=== PATIENT | female | born 1990 ===

== ENCOUNTER 2016-05-07 16:40 | Inpatient (IN) | payer BC, OTHER ==
[2016-05-07 17:30] VITALS: BMI 20.9
[2016-05-07] MEDS ORDERED: DINOPROSTONE 10 MG VAGINAL SUPPOSITORY VG ONE (18:15)
[2016-05-07] MEDS ORDERED: TUBERCULIN PPD 5 TU/0.1ML SYRINGE (IN PATIENT USE ONLY) ID ONE (18:15)
[2016-05-07 18:37] LABS: BASOPHIL 0.3 % (0-2.0); EOSINOPHIL 0.9 % (0-4.5); MCH 32.6 pg (25.7-33.7); MCHC 34.3 g/dl (32.0-36.0); MEAN CELL VOLUME 95.2 fl (80-96); MEAN PLT VOLUME 9.8 fl (7.5-11.1); NEUTROPHILS 68.6 % (42.8-82.8); PLATELET COUNT 164 K/MM3 (134-434); RDW 12.6 % (11.6-15.6)
[2016-05-07 19:23] LABS: INR 0.98 (0.82-1.09); PROTHROMBIN TIME (PATIENT) 10.8 SEC (9.98-11.88)
[2016-05-07 19:26] LABS: ACTIVATED PTT 25.8 SECONDS (26.9-34.4)
[2016-05-07 19:35] LABS: CALCIUM 8.4 mg/dL (8.5-10.1); CREATININE 0.7 mg/dL (0.55-1.02)
[2016-05-07] MEDS ORDERED: PROMETHAZINE HCL 25 MG/1 ML VIAL IVPUSH ONE (20:21)
[2016-05-07] MEDS ORDERED: BUTORPHANOL TARTRATE 1 MG/ML VIAL IVPB ONE (20:21)
--- NOTE | 2016-05-07 20:37 | HP ---
Past Medical History - Admission History of Present Illness: 25 y/o with SIUP at 39.5 weeks gestation (EDC 05/09/16 by LMP and ultrasound ) here today for labor induction. Pt has had uncomplicated . Last ultrasound showed EFW 18%ile and AC 15I%ile. GBS negative. HIV negative. Low risk NIPT. NO other issues. +FM, no VB/LOF/CTx. Cervix closed in office yesterday. 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: Dementia, Migraine Cardiovascular: No: AFIB, HTN Pulmonary: No: Bronchitis, COPD, Sleep Apnea Gastrointestinal: No: Inflamatory Bowel Disease, Irritable Bowel Disease Reproductive: No: Ectopic , Endometriosis, Fibroids, Polycystic Ovary Syndrome ...: 1 ...Para: 0 ...Term: 0 ...: 0 ...Spon : 0 ...Induced : 0 ...Multiple Gestation: 0 ...EDC by Sono: 05/09/16 Heme/Onc: Yes: Anemia Infectious Disease: No: HIV, STD's Psych: No: Bipolar, Depression Endocrine: No: Diabetes Mellitus, Hyperthyroidism, Hypothyroidism - Past Surgical History Hx Myomectomy: No Hx Transabdominal Cerclage: No Additional Surgical History: sty removed from eye in past - Smoking History Smoking history: Never smoked Have you smoked in the past 12 months: No - Alcohol/Substance Use Hx Alcohol Use: No - Social History ADL: Independent History of Recent Travel: No Home Medications - Allergies Allergies/Adverse Reactions: Allergies Allergy/AdvReac Type Severity Reaction Status Date / Time No Known Allergies Allergy Verified 05/07/16 17:31 - Home Medications Home Medications: Ambulatory Orders Vitamins (Sjr) - 1 tab PO DAILY 05/07/16 Review of Systems - Review of Systems Constitutional: reports: No Symptoms Eyes: reports: No Symptoms HENT: reports: No Symptoms Neck: reports: No Symptoms Cardiovascular: reports: No Symptoms Respiratory: reports: No Symptoms Gastrointestinal: reports: No Symptoms Genitourinary: reports: No Symptoms Breasts: reports: No Symptoms Reported Musculoskeletal: reports: No Symptoms Integumentary: reports: No Symptoms Neurological: reports: No Symptoms Endocrine: reports: No Symptoms Hematology/Lymphatic: reports: No Symptoms Psychiatric: reports: No Symptoms Physical Exam - Maternity Vital Signs: Vital Signs Temperature 98.3 F 05/07/16 19:00 Pulse Rate 60 05/07/16 19:00 Respiratory Rate 20 05/07/16 18:00 Blood Pressure 112/58 05/07/16 19:00 O2 Sat by Pulse Oximetry (%) Constitutional: Yes: Well Nourished, No Distress, Calm Eyes: Yes: Conjunctiva Clear, EOM Intact HENT: Yes: Atraumatic, Normocephalic Neck: Yes: Supple, Trachea Midline Cardiovascular: Yes: Regular Rate and Rhythm Lungs: Clear to auscultation - Abdominal Exam/OB Number of Fetuses: Single Presentation: Vertex Contractions: No Category: I Accelerations: Uniform Decelerations: None - Vaginal Exam/OB Vaginal Bleediing: No Dilatation (cm): 0 Amniotic Membrane Status: Intact Presentation: Vertex/Position Station: 0 - Physical Exam Psychiatric: Yes: Alert, Oriented - Labs Lab Results: CBC, BMP 05/07/16 17:45 05/07/16 17:45 Hemorrhage Risk Assessment - Risk Factors Medium Risk Factors: Yes: None High Risk Factors: Yes: None Risk Score: 1 Risk Level: Medium Risk Problem List - Problems (1) Term Code(s): Z34.80 - ENCOUNTER FOR SUPRVSN OF NORMAL , UNSP TRIMESTER (2) Anemia affecting in third trimester Code(s): O99.013 - ANEMIA COMPLICATING , THIRD TRIMESTER Assessment/Plan 25 y/o with SIUP at 39.5 weeks, labor induction - FHTS cat 1 - labor induction, cervidil placed at 6:30 pm. For removal at 6:30 am and reassess for possible pitocin vs 2nd cervidil - GBS negative
[2016-05-08] MEDS ORDERED: DEXTROSE 5%-LACTATED RINGERS 500 ML IV SCH (03:40)
[2016-05-08] MEDS ORDERED: DEXTROSE 5%-LACTATED RINGERS 500 ML IV ONE (04:40)
[2016-05-08] MEDS ORDERED: DEXTROSE 5%-LACTATED RINGERS 1,000 ML IV SCH (06:40)
[2016-05-08] MEDS ORDERED: BISACODYL 10 MG SUPP.RECT RC PRN (07:30)
[2016-05-08] MEDS ORDERED: D5W-LR W/ 20 UNITS OXYTOCIN 1,000 ML IV SCH (07:30)
[2016-05-08] MEDS ORDERED: METHYLERGONOVINE MALEATE 0.2 MG/1 ML AMP IM PRN (07:30)
[2016-05-08] MEDS ORDERED: BENZOCAINE 28 GM HEMORRHOIDAL OINTMENT TP PRN (07:30)
[2016-05-08] MEDS ORDERED: WITCH HAZEL 50% (TUCKS) 40 PAD/JAR PAD TP PRN (07:30)
[2016-05-08] MEDS ORDERED: BENZOCAINE 20% 57 GM BOTTLE TP PRN (07:30)
--- NOTE | 2016-05-08 07:34 | PN ---
Delivery - Delivery Vaginal Delivery: No Problems Type of Anesthesia: None Episiotomy/Laceration: None EBL (cc): 300 Delivery, Single - Stages of Labor Date of Delivery: 05/08/16 Time of Delivery: 07:20 Date Placenta Delivered: 05/08/16 Time Placenta Delivered: :24 Placenta: Yes: Spontaneous - Condition of Histopathologist/[place] Archeology Professor Present: No Gender: Female Position: Right, OA - 1 Minute Total Score: 9 5 Minutes Total Score: 9 - Feeding Plan Initial Plan: Exclusive throughout hospitalization Remarks - Remarks Remarks: uncomplicated of baby girl form RAIZA position across intact perineum right shoulder (anterior ) delivered with ease along with posterior shoulder and remainder of infant cord clamped and cut - 3VC noted placenta delivered spontaneously and in tact no laceration sponge count correct mom stable baby to well baby nursery
[2016-05-08] MEDS: IBUPROFEN 600 MG TABLET (FP) PO PRN (09:00)
[2016-05-08] MEDS: ACETAMINOPHEN 325 MG TABLET (FP) PO PRN (09:00)
[2016-05-08] MEDS: PRENATAL VITAMINS W/ FOLIC ACID TABLET (FP) PO SCH (10:58)
[2016-05-09] MEDS: ACETAMINOPHEN 325 MG TABLET (FP) PO PRN ×2 (02:45→21:21)
[2016-05-09] MEDS: IBUPROFEN 600 MG TABLET (FP) PO PRN ×2 (02:46→21:22)
[2016-05-09 08:07] LABS: BASOPHIL 0.4 % (0-2.0); EOSINOPHIL 1.2 % (0-4.5); MCH 32.5 pg (25.7-33.7); MCHC 33.9 g/dl (32.0-36.0); MEAN PLT VOLUME 9.9 fl (7.5-11.1); PLATELET COUNT 144 K/MM3 (134-434); RDW 12.5 % (11.6-15.6)
[2016-05-09] MEDS: PRENATAL VITAMINS W/ FOLIC ACID TABLET (FP) PO SCH (09:40)
[2016-05-09] MEDS ORDERED: DIPHTH,PERTUSS(ACELL),TET 0.5 ML DISP.SYRIN IM ONE (10:00)
[2016-05-09] MEDS ORDERED: INFLUENZA VACCINE 45 MCG/0.5 ML (MDV 16-17) IM ONE (10:00)
[2016-05-09] MEDS ORDERED: VACCINE 60 MCG/0.5 ML (P/F DISP.SYRIN 16-17) IM ONE (10:00)
--- NOTE | 2016-05-09 11:07 | PN ---
Post Progress Note - Subjective Subjective: Pt seen/evaluated and doing well. Pain controlled, tolerating diet. No n/v. No f/c. Ambulating, voiding. VB minimal. Type of Delivery: Vital Signs: Vital Signs Temperature 97.9 F 05/09/16 08:00 Pulse Rate 60 05/09/16 08:00 Respiratory Rate 20 05/09/16 08:00 Blood Pressure 100/50 05/09/16 08:00 O2 Sat by Pulse Oximetry (%) Uterus: Yes: Fundus Firm, Fundus below umbilicus Abdomen/GI: Yes: Abdomen soft, Passing flatus, Tolerating PO. No: Abdominal Distention, Tender Lochia: Yes: Rubra Lochia, amount: Small Extremities: Yes: Calves non-tender. No: Edema Perineum: Yes: Intact Activity: Ambulating (CV: RRR, lungs: CTA B/L) - Labs Labs: CBC WBC 8.0 K/mm3 (4.0-10.0) D 05/09/16 07:15 RBC 2.96 M/mm3 (3.60-5.2) L 05/09/16 07:15 Hgb 9.6 GM/dL (10.7-15.3) L 05/09/16 07:15 Hct 28.4 % (32.4-45.2) L 05/09/16 07:15 MCV 96.0 fl (80-96) 05/09/16 07:15 MCHC 33.9 g/dl (32.0-36.0) 05/09/16 07:15 RDW 12.5 % (11.6-15.6) 05/09/16 07:15 Plt Count 144 K/MM3 (134-434) 05/09/16 07:15 MPV 9.9 fl (7.5-11.1) 05/09/16 07:15 Neutrophils % 68.0 % (42.8-82.8) 05/09/16 07:15 Lymphocytes % 21.8 % (8-40) 05/09/16 07:15 Monocytes % 8.6 % (3.8-10.2) 05/09/16 07:15 Eosinophils % 1.2 % (0-4.5) 05/09/16 07:15 Basophils % 0.4 % (0-2.0) 05/09/16 07:15 Problem List - Problems (1) Term Code(s): Z34.80 - ENCOUNTER FOR SUPRVSN OF NORMAL , UNSP TRIMESTER (2) Anemia affecting in third trimester Code(s): O99.013 - ANEMIA COMPLICATING , THIRD TRIMESTER (3) Vaginal delivery Code(s): O80 - ENCOUNTER FOR FULL-TERM UNCOMPLICATED DELIVERY Assessment/Plan 25 y/o post day #1 s/p normal - AFVSS - Hgb 9.6 post delivery, stable - continue vitamins - Ambulation, PO pain meds, regular diet - routine care
[2016-05-09] MEDS ORDERED: SENNOSIDES/DOCUSATE COMBO (SENNA PLUS) TABLET (UD) PO PRN (22:00)
[2016-05-10 09:05] VITALS: BP 104/51; PULSE 56; TEMP 99.1
[2016-05-10] MEDS: PRENATAL VITAMINS W/ FOLIC ACID TABLET (FP) PO SCH (09:26)
--- NOTE | 2016-08-09 16:40 | DS ---
DATE OF ADMISSION: 05/07/2016 DATE OF DISCHARGE: 05/10/2016 ADMITTING PHYSICIAN: Wendy Earl M.D. ADMITTING DIAGNOSIS: Single intrauterine at 39.5 weeks' gestation. PROCEDURES: Including induction of labor, and a normal spontaneous vaginal delivery. CONSULTATIONS DURING ADMISSION: None. VITAL SIGNS: Upon discharge included temperature 99.1, heart rate 56, blood pressure 104/51, respiratory rate 20. LABORATORY VALUES: Upon date of discharge with a white blood cell count of 8.0, hemoglobin 9.6, platelets 144. BRIEF HOSPITAL SUMMARY: Patient is a 25-year-old female admitted to [facility] on May 07, 2016, for induction of labor. The patient underwent a Cervidil induction on the evening of May 07, 2016, and had an uncomplicated normal spontaneous vaginal delivery on the morning of May 08, 2016. Please see delivery note for full details of the delivery. The patient underwent an uncomplicated course, and on day 1 was ambulating, voiding , tolerating regular diet, passing flatus, and had minimal to moderate vaginal bleeding or lochia. On day 2, the patient was stable, meeting all post delivery milestones, again had minimal vaginal bleeding and was tolerating a diet, voiding and passing flatus, at which point the patient was deemed stable and was discharged home on that date. The patient was given instructions to call with any fever or greater than 101.0, severe pain uncontrolled by medications, heavy vaginal bleeding, or any other concerns. Patient was discharged home with instructions to take Tylenol or Motrin for mild pain. Patient expressed understanding of these discharge instructions, was discharged home on May 10, 2016, in stable condition. WENDY EARL DO /[id number] MTDD
== END 2016-05-10 12:05 | disposition home or self-care (01) | DRG 775 ==
LOC: JLDR 16:40 → J3W 05-08 09:49
PROVIDERS: ADMIT Obstetrics & Gynecology; ATTEND Obstetrics & Gynecology
PROC: 3E0P7GC Introduction of Other Therapeutic Substance into Female Reproductive, Via Natural or Artificial Opening (ICD-10-PCS; 2016-05-07)
PROC: 10E0XZZ Delivery of Products of Conception, External Approach (ICD-10-PCS; principal; 2016-05-08)
DX: O99.02 Anemia complicating childbirth (principal); Z3A.39 39 weeks gestation of pregnancy; Z37.0 Single live birth
CPT/HCPCS: 36415; 59409; 80048; 85025; 85610; 85730; 86593; 86762; 86850; 86900; 86901; 90661; 90715; G0008